=== PATIENT | male | born 1990 | race Two or more races ===

== ENCOUNTER 2016-07-30 18:38 | Emergency (ER) | payer BC ==
[~2016-07-30] VITALS: Ht 172.7 cm; Wt 70.3 kg
--- NOTE | 2016-07-30 18:46 | NUR ---
PT BIB [facility] C/O "ALLERGIC REACTION TO AVOCADO" HOWEVER NO AVOCADO WAS INGESTED AND NO S/SX OF ALLERGIC REACTION NOTED. PT APPEARS VERY ANXIOUS, CRYING, AND PERFORMING METERED BREATHING INSTRUCTED BY RA. NOTED WITH CONTRACTIONS/SPASMS OF FINGERS AND HANDS. PT STATES "MY FACE WENT NUMB", C/O ABD PAIN AND BONITA KNEE NUMBNESS. NO NEURO DEFICITS NOTED. IN ER BED 11 ON MONITOR.
[2016-07-30] MEDS ORDERED: LORAZEPAM INJ 2 MG/ML VIAL ONE (18:57)
[2016-07-30] MEDS ORDERED: LORAZEPAM INJ 2 MG/ML VIAL IV ONE (19:00)
[2016-07-30 19:57] LABS: BASOPHILS # (AUTO) 0.1 /CMM (0.0-0.2); BASOPHILS % (AUTO) 0.5 % (0.0-2.0); EOSINOPHILS # (AUTO) 0.2 /CMM (0.0-0.7); EOSINOPHILS % (AUTO) 1.8 % (0.0-6.0); HEMATOCRIT 44 % (39-51); HEMOGLOBIN 15.1 g/dL (13.5-17.5); LYMPHOCYTES # (AUTO) 1.5 /CMM (0.8-4.8); LYMPHOCYTES % (AUTO) 12.6 % (20.0-44.0); MEAN CORPUSCULAR HEMOGLOBIN 30 PG (26.0-33.0); MEAN CORPUSCULAR HGB CONC 35 g/dl (31.0-36.0); MEAN CORPUSCULAR VOLUME 85 fL (80-96); MONOCYTES # (AUTO) 0.6 /CMM (0.1-1.30); MONOCYTES % (AUTO) 5.2 % (2.0-12.0); NEUTROPHILS # (AUTO) 9.4 /CMM (1.8-8.9); NEUTROPHILS % (AUTO) 79.9 % (43.0-81.0); PLATELET COUNT (AUTO) 326 /CMM (150-450); RDW COEFFICIENT OF VARIATION 11.4 (11.5-15.0); RED BLOOD CELL COUNT(AUTO) 5.12 MIL/uL (4.5-6.0); WHITE BLOOD COUNT (AUTO) 11.8 K/uL (4.3-11.0)
[2016-07-30] MEDS ORDERED: IV NS 0.9% 1,000 ML BAG IV ONE (20:00)
[2016-07-30 20:18] LABS: ALANINE AMINOTRANSFERASE 38 U/L (12-78); ALBUMIN 3.6 g/dL (3.4-5.0); ALKALINE PHOSPHATASE 72 U/L (46-116); ASPARTATE AMINOTRANSFERASE 22 U/L (15-37); BILIRUBIN,TOTAL 0.3 mg/dL (0.2-1.0); CALCIUM, SERUM 8.8 mg/dL (8.5-10.1); CARBON DIOXIDE 26 mmol/L (21-32); CHLORIDE 105 mmol/L (98-107); CREATININE 0.9 mg/dL (0.6-1.3); GFR 103 mL/min (>60); GLUCOSE 114 mg/dL (74-106); LIPASE 209 U/L (73-393); POTASSIUM 3.5 mmol/L (3.5-5.1); SODIUM SERUM 138 mmol/L (136-145); TOTAL PROTEIN, SERUM 6.9 g/dL (6.4-8.2); UREA NITROGEN, BLOOD 13 mg/dL (7-18)
[2016-07-30] MEDS ORDERED: IV NS 0.9% 1,000 ML ONE (20:19)
[2016-07-30] MEDS ORDERED: IV SET PRIMARY 1 EA INFUS.SET MC ONE (20:19)
[2016-07-30 20:20] LABS: TROPONIN I < 0.017 ng/mL (0.00-0.056)
--- NOTE | 2016-07-30 21:01 | NUR ---
Patient discharged to home in stable condition. Written and verbal after care instructions given. Patient verbalizes understanding of instruction. IV removed. Catheter intact and site benign. Pressure and 4x4 applied to site. No bleeding noted. AMBULATORY WITH STEADY GAIT. PT APPEARS CALM. NAD NOTED.
[2016-07-30 21:02] VITALS: BP 108/79
== END 2016-07-30 21:02 | disposition home or self-care (01) ==
LOC: ER 18:39
DX: F41.9 Anxiety disorder, unspecified (principal); F10.20 Alcohol dependence, uncomplicated; F17.210 Nicotine dependence, cigarettes, uncomplicated
CPT/HCPCS: 36415; 71010; 80053; 83690; 84484; 85025; 93005 ×2; 96361; 96374; 99285; A4606; J2060; J7030; Z7610